=== PATIENT | male | born 1960 | race Two or more races ===

== ENCOUNTER → 2016-12-14 | Outpatient (CLI) | payer BC ==
[~2016-12-14] MED LIST: ASPI325T32 PO; BLOO-1280 MC; ERGO500037 PO; GEMF600T60 PO; HYDR-3498 PO; LISI40TA9 PO; METF1000 PO; PANT40TA4 PO; POTA10TA18 PO; SITA100T8 PO; TAMS0.4C2 PO; TERA1CAP36 PO; TRAM50TA2 PO
--- NOTE | 2016-12-14 19:39 | RADRPT ---
PROCEDURE: XR LEFT HIP. CLINICAL INDICATION: Postop right hip. TECHNIQUE: 3 views of the left hip were performed. COMPARISON: 06/20/2016. FINDINGS: There has been no change. Patient is status post bipolar hemiarthroplasty on the right side. No ev idence for loosening infection or fracture of the hardware. No evidence for hardware subluxation or dislocation. No osseous fractures seen. IMPRESSION: 1. Appropriate appearance to right bipolar hemiarthroplasty. 2. No hardware malfunction is seen. 3. No acute osseous abnormality is seen. RPTAT: XX .Axel Barrow MD, MD Date Time Electronically viewed and signed by .Axel Barrow MD, MD on 12/14/2016 19:39 .T/
== END | disposition home or self-care (01) ==
LOC: HKI 09:59
PROVIDERS: ATTEND Orthopaedic Surgery
DX: M25.552 Pain in left hip (principal); M16.12 Unilateral primary osteoarthritis, left hip; Z96.641 Presence of right artificial hip joint
CPT/HCPCS: 73502; Z7500; G0463